=== PATIENT | female | born 1950 | race Caucasian/White ===

== ENCOUNTER → 2017-08-01 | Outpatient (CLI) | payer MEDICARE, OTHER ==
--- NOTE | 2017-08-02 09:51 | KCIC ---
DATE: 08/01/2017 EXAM: MAMMO BERNIE SCREENING BILATERAL HISTORY: Routine screening. COMPARISON: 07/30/2016 and 07/30/2015. This study was interpreted with the benefit of Computerized Aided Detection (CAD). FINDINGS: The parenchymal pattern is stable. Postbiopsy changes in both breasts are again noted. No new mass or malignant appearing microcalcifications are seen. Benign-appearing calcifications are present. Breast Density: HETERO The breast parenchyma is heterogeneously dense, which could reduce sensitivity of mammography. Breast parenchyma level C. IMPRESSION: No mammographic features suspicious for malignancy are identified. BI-RADS CATEGORY: 2 BENIGN FINDING(S) RECOMMENDED FOLLOW-UP: 12M 12 MONTH FOLLOW-UP PQRS compliance statement: Patient information was entered into a reminder system with a target due date 08/01/2018 for the next mammogram. Mammography is a sensitive method for finding small breast cancers, but it does not detect them all and is not a substitute for careful clinical examination. A negative mammogram does not negate a clinically suspicious finding and should not result in delay in biopsying a clinically suspicious abnormality. "Our facility is accredited by the [employer] Mammography [employer]."
== END | disposition home or self-care (01) ==
LOC: KCIC MAMMO 14:50
PROVIDERS: ATTEND Family Medicine
DX: Z12.31 Encounter for screening mammogram for malignant neoplasm of breast (principal)
CPT/HCPCS: 77063; G0202; 77067

== ENCOUNTER → 2018-08-02 | Outpatient (CLI) | payer MEDICARE ==
--- NOTE | 2018-08-02 16:05 | KCIC ---
EXAM: Bilateral digital screening mammogram with tomosynthesis. HISTORY: 67-year-old female presents for screening mammography. TECHNIQUE: Full-field digital craniocaudal and mediolateral oblique 2D and 3D tomosynthesis images of both breasts are obtained for evaluation. Computer aided detection with [employer] software version 9.3 was applied. COMPARISON: 08/01/2017 BREAST PARENCHYMAL DENSITY: Level C - Heterogeneously dense. FINDINGS: There is suggestion of architectural distortion within the central right breast in the craniocaudal projection, without a clear correlate on the prior study. There is a biopsy clip within the right breast. There are few faint punctate calcifications within both breasts. IMPRESSION: BI-RADS Category 0: Additional imaging needed. RECOMMENDATION: Further evaluation with and spot compression craniocaudal view of the right breast and full field true lateral view the right breast to assess possible architectural distortion is recommended. If your mammogram demonstrates that you have dense breast tissue, which could hide abnormalities, and if you have other risk factors for breast cancer that have been identified, you might benefit from supplemental screening tests that may be suggested by your ordering physician. Dense breast tissue, in and of itself, is a relatively common condition. This information is not provided to cause undue concern, but rather to raise your awareness and to promote discussion with your physician regarding the presence of other risk factors, in addition to dense breast tissue. A report of your mammography results will be sent to you and your physician. You should contact your physician if you have any questions or concerns regarding this report. Mammography is a sensitive method for finding small breast cancers, but it does not detect them all and is not a substitute for careful clinical examination. A negative mammogram does not negate a clinically suspicious finding and should not result in delay in biopsying a clinically suspicious abnormality. PQRS compliance statement - Patient information was entered into a reminder system with a target due date for the next mammogram. "Our facility is accredited by the [employer] Mammography Program." Electronically signed by: Carmela Cruz MD (08/02/2018 4:01 PM) [id number]
== END | disposition home or self-care (01) ==
LOC: KCIC MAMMO 14:32
PROVIDERS: ATTEND Family Medicine
DX: Z12.31 Encounter for screening mammogram for malignant neoplasm of breast (principal)
CPT/HCPCS: 77063; 77067

== ENCOUNTER → 2018-08-14 | Outpatient (CLI) | payer MEDICARE ==
--- NOTE | 2018-08-14 13:41 | KCIC ---
History: asymmetric tissue density right breast on the August 02, 2018 mammogram. Technique: The following digital mammographic additional views were obtained: spot CC true ML. Computer aided detection was utilized with iCAD Second Look 7.2-H Comparison: July 30, 2016 Findings: The density does not persist consistent with summation of normal fibroglandular tissue. Impression: No suspicious findings. BI-RADS Category 1: Negative. Normal interval followup. These results were given to the patient in person. Patient information is entered into the [facility] reminder system using [employer] with a target due date for the next screening mammogram. The patient will receive a reminder. A mammogram does not have 100% sensitivity and therefore a negative imaging study should not delay further work up of a suspicious abnormality. "Our facility is accredited by the [employer] Mammography Program." Electronically signed by: Tapan Mendoza III, MD (08/14/2018 1:37 PM) [id number]
== END | disposition home or self-care (01) ==
LOC: KCIC MAMMO 12:57
PROVIDERS: ATTEND Family Medicine
DX: R92.8 Other abnormal and inconclusive findings on diagnostic imaging of breast (principal)
CPT/HCPCS: 77065

== ENCOUNTER → 2019-09-04 | Outpatient (CLI) | payer MEDICARE ==
--- NOTE | 2019-09-04 16:46 | KCIC ---
Bilateral digital screening mammograms with 3-D tomosynthesis: Reason for examination: Routine screening. Comparison is made to previous studies dated back to 07/30/2016. Bilateral mammograms in CC and oblique projections were obtained with 2-D imaging and 3-D tomosynthesis imaging on a Siemens Inspiration unit and reviewed on the workstation. Interpretation was made with the benefit of CAD. The skin and nipples show no abnormalities. No abnormal axillary lymph nodes are seen. The breast parenchyma is heterogeneously dense. (Breast density: Category C.) There appears to be a small nodular density just below the local nipple line seen posteriorly in the left oblique view only. Recommend further evaluation with additional left breast mammographic views and left breast ultrasound. There are no other dominant masses, suspicious calcifications or architectural distortion. Impression: Small nodular density seen posteriorly on the left oblique view only. Recommend further evaluation with additional mammographic views and ultrasound. Your patient's mammogram demonstrates that she has dense breast tissue (breast density category C or D), which could hide abnormalities, and if she has other risk factors for breast cancer that have been identified, she might benefit from supplemental screening tests that may be suggested by you as her ordering physician. Dense breast tissue, in and of itself, is a relatively common condition. Therefore, this information is not provided to cause undue concern, but rather to raise your awareness and to promote discussion with your patient regarding the presence of other risk factors, in addition to dense breast tissue. Your patient's mammography results will be sent to her. BI-RAD Category 0: Incomplete. Needs additional imaging evaluation. "Our facility is accredited by the [employer] Mammography Program." This patient's information has been entered into a reminder system for the patient to be notified with the results of her examination and a target date for the next mammogram. Electronically signed by: Yoli Grace MD (09/04/2019 4:43 PM) [id number]
== END | disposition home or self-care (01) ==
LOC: KCIC MAMMO 13:48
PROVIDERS: ATTEND Family Medicine
DX: Z12.31 Encounter for screening mammogram for malignant neoplasm of breast (principal); N64.89 Other specified disorders of breast; N63.20 Unspecified lump in the left breast, unspecified quadrant
CPT/HCPCS: 77063; 77067

== ENCOUNTER → 2019-09-17 | Outpatient (CLI) | payer MEDICARE ==
--- NOTE | 2019-09-17 16:39 | KCIC ---
Left breast diagnostic digital mammograms: Reason for examination: Nodular density on screening mammogram. Comparison is made to mammographic exam dated 09/04/2019. [place] compression views were obtained in lateral projection. With these additional views, a small nodule persists posteriorly inferior to the nipple line. Further evaluation with ultrasound follow. IMPRESSION: Small nodular density appears persistent posterior and inferiorly in the left breast. Ultrasound to follow. BI-RADS Category 0: Incomplete. Needs additional imaging evaluation. Left breast ultrasound: Ultrasound examination of the left breast and axilla was performed. At the 6:00 position 1 cm from the nipple, there is a hypoechoic circumscribed lesion lying in parallel orientation measuring 5 mm in greatest dimension. This would correspond with the area of mammographic concern and may represent a small fibroadenoma or fibrocystic lesion. No suspicious-appearing nodules are seen. No abnormal appearing lymph nodes are seen in the left axilla. IMPRESSION: 5 mm hypoechoic lesion consistent with a small fibroadenoma or fibrocystic nodule. Recommend 6 month follow-up with ultrasound. BI-RADS Category 3: Probably Benign. "Our facility is accredited by the [employer] Mammography Program." This patient's information has been entered into a reminder system for the patient to be notified with the results of her examination and a target date for the next mammogram. Electronically signed by: Yoli Grace MD (09/17/2019 4:36 PM) [id number]
== END | disposition home or self-care (01) ==
LOC: KCIC MAMMO 13:05
PROVIDERS: ATTEND Family Medicine
DX: R92.8 Other abnormal and inconclusive findings on diagnostic imaging of breast (principal)
CPT/HCPCS: 76641; 77065

== ENCOUNTER → 2021-11-02 | Outpatient (CLI) | payer MEDICARE ==
--- NOTE | 2021-11-02 13:08 | RAD ---
MR of the left knee - VISIONAIRE protocol History: Reason: OSTEOARTHRITIS OF LEFT KNEE / Spl. Instructions: VISIONAIRE PROTOCOL / History: . Technique: Images are obtained in accordance with the standard VISIONAIRE protocol. Note this is not a diagnostic exam, but solely for the purpose of DrikAIRE medical representative construct ion. Severe left knee joint osteoarthritis with chondral effacement greatest in the medial compartmen t with subchondral edema and cystic change and complex tear of the medial meniscus. Large [place]'s cys t is seen. Electronically signed by: Laith Urbina MD (11/02/2021 1:05 PM) [id number]
--- NOTE | 2021-11-03 08:42 | RAD ---
XR BONE LENGTH History: Reason: VISIONAIRE PROTOCOL. / Spl. Instructions: / History: Technique: AP views of the left lower extremity. Comparison: None. Findings: Advanced left knee degenerative changes most prominent within the medial compartment. No dislocation. No acute fracture. Impression: 1. Advanced left knee DJD. Electronically signed by: Ulysses Carrillo DO (11/03/2021 8:40 AM) [id number]
== END ==
LOC: MRI 10:12
PROVIDERS: ATTEND Orthopaedic Surgery Sports Medicine
DX: S83.232A Complex tear of medial meniscus, current injury, left knee, initial encounter (principal); M17.12 Unilateral primary osteoarthritis, left knee; M71.22 Synovial cyst of popliteal space [Baker], left knee; X58.XXXA Exposure to other specified factors, initial encounter; Y93.89 Activity, other specified; Y92.89 Other specified places as the place of occurrence of the external cause; Y99.8 Other external cause status
CPT/HCPCS: 73721; 77073

== ENCOUNTER → 2021-11-30 | Outpatient (CLI) | payer MEDICARE ==
[~2021-11-30] MED LIST: ACET500T68 PO; ALPR0.5T6 PO; ASPI-630 PO; CALC-584 PO; ERGO2000 PO; IBUP-1060 PO; LACT1CAP6 PO; LEXAPRO20 MG PO; OMEG100021 PO; POLY17PO29 PO
[2021-11-30 09:15] LABS: BASO # 0.1 x10^3/uL (0.0-0.2); BASO % 2 % (0-3); EOS # 0.1 x10^3/uL (0.0-0.7); EOS % 2 % (0-3); HEMATOCRIT 35.1 % (36.0-47.0); HEMOGLOBIN 11.6 g/dL (12.0-15.5); LYMPH # 1.9 x10^3/uL (1.0-4.8); LYMPH % 52 % (24-48); MEAN CORPUSCULAR HEMOGLOBIN 30 pg (25-35); MEAN CORPUSCULAR HGB CONC 33 g/dL (31-37); MEAN CORPUSCULAR VOLUME 92 fL (79-100); MONO # 0.3 x10^3/uL (0.0-1.1); MONO % 9 % (0-9); NEUT # 1.3 x10^3/uL (1.8-7.7); NEUT % 36 % (31-73); PLATELET COUNT 305 x10^3/uL (140-400); RED BLOOD COUNT 3.83 x10^6/uL (3.50-5.40); RED CELL DISTRIBUTION WIDTH 13.3 % (11.5-14.5); WHITE BLOOD COUNT 3.7 x10^3/uL (4.0-11.0)
[2021-11-30 09:22] LABS: PROTHROMBIN TIME PATIENT 13.2 SEC (11.7-14.0)
[2021-11-30 09:49] LABS: ALBUMIN 3.9 g/dL (3.4-5.0); CALCIUM 9.4 mg/dL (8.5-10.1); CREATININE 0.9 mg/dL (0.6-1.0); GFR 61.7; POTASSIUM 4.2 mmol/L (3.5-5.1)
--- NOTE | 2021-11-30 12:29 | EKG ---
[facility] [address] [place] [address] Test Date: 2021-11-30 Test Time: 12:29:03 Pat Name: GAETANO WHITE Department: Room: Gender: F Systems Analyst Engineer: : [id number] Requested By: KEILY COX Order Number: [id number] Reading MD: Jeffy Valencia Measurements Intervals [place] Rate: 62 P: 52 [place]: 140 QRS: 75 QRSD: 86 T: 52 QT: 442 QTc: 451 Interpretive Statements SINUS RHYTHM T ABNORMALITY IN ANTERIOR LEADS Electronically Signed On 12-02-2021 12:06:15 CDT by Jeffy Valencia
--- NOTE | 2021-11-30 14:59 | RAD ---
EXAM: XR CHEST 2V 11/30/2021 12:35 PM CLINICAL INDICATION: Hyperlipidemia COMPARISON: None TECHNIQUE: PA and lateral views of the chest FINDINGS: The heart is normal in size. Lungs are hyperexpanded. No consolidation, pleural effusion, or pneumothorax. There is S-shaped thoracolumbar scoliosis. IMPRESSION: 1. No acute cardiopulmonary abnormality. 2. Thoracolumbar scoliosis. Electronically signed by: Leta Vo MD (11/30/2021 2:57 PM) [id number]
[2021-12-01 00:34] LABS: HEMOGLOBIN A1C 5.5 % (4.8-5.6)
== END ==
LOC: SURGPAT 12:38
PROVIDERS: ATTEND Orthopaedic Surgery Sports Medicine
DX: Z01.818 Encounter for other preprocedural examination (principal); R94.31 Abnormal electrocardiogram [ECG] [EKG]; M41.85 Other forms of scoliosis, thoracolumbar region; M17.12 Unilateral primary osteoarthritis, left knee
CPT/HCPCS: 36415; 71046; 80048; 82040; 82306; 83036; 85025; 85610; 85651; 85730; 87641; 93005